=== PATIENT | male | born 1960 ===

== ENCOUNTER 2016-10-29 23:56 | Emergency (ER) | payer OTHER ==
[2016-10-29 23:59] VITALS: RESP 18; O2SAT 100
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
[2016-10-30 04:55] VITALS: BP 119/80; PULSE 60; TEMP 97.8
--- NOTE | 2016-10-30 13:42 | RAD ---
PROCEDURE: Radiographs of the pelvis. HISTORY: injury right side pain COMPARISON: None. FINDINGS: BONES: Pelvic Bones: Unremarkable. Hips: Grossly unremarkable. JOINTS: Sacroiliac Joints: Unremarkable. Pubic Symphysis: Unremarkable. OTHER FINDINGS: None. IMPRESSION: Unremarkable radiographs of the pelvis.
--- NOTE | 2016-10-30 13:42 | RAD ---
PROCEDURE: Radiographs of the Lumbar Spine. HISTORY: injury COMPARISON: No prior. FINDINGS: BONES: Normal alignment. No listhesis. No fracture. DISC SPACES: Degenerative change, vacuum disc phenomenon limited to the lumbosacral junction. OTHER FINDINGS: None. IMPRESSION: No acute findings related to/accounting for the clinical presentation.
--- NOTE | 2016-10-30 13:43 | RAD ---
PROCEDURE: Right Knee Radiographs. HISTORY: injury, medial pain COMPARISON: None. FINDINGS: BONES: Normal. No fracture. JOINTS: Normal. No osteoarthritis. JOINT EFFUSION: None. OTHER FINDINGS: None. IMPRESSION: No acute findings related to/accounting for the clinical presentation. No preliminary report provided by emergency department personnel.
--- NOTE | 2016-10-30 13:43 | RAD ---
PROCEDURE: Radiographs of the right tibia and fibula. HISTORY: injury, distal pain COMPARISON: None available. TECHNIQUE: Frontal and lateral views obtained. FINDINGS: BONES: No fracture or destructive lesion. JOINT SPACES: Unremarkable. OTHER FINDINGS: None. IMPRESSION: No acute findings related to/accounting for the clinical presentation. No preliminary report provided by emergency department personnel.
== END 2016-10-30 05:33 | disposition home or self-care (01) ==
LOC: H.ER 23:56
DX: S89.91XA Unspecified injury of right lower leg, initial encounter (principal); M54.5 Low back pain; S80.11XA Contusion of right lower leg, initial encounter; E11.9 Type 2 diabetes mellitus without complications; I10 Essential (primary) hypertension; V13.4XXA Pedal cycle driver injured in collision with car, pick-up truck or van in traffic accident, initial encounter; Y93.55 Activity, bike riding

== ENCOUNTER 2017-03-04 22:45 | Emergency (ER) | payer OTHER ==
[2017-03-04 22:50] VITALS: BP 141/82; PULSE 77; RESP 18; TEMP 98.3; O2SAT 96
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
== END 2017-03-05 01:11 | disposition home or self-care (01) ==
LOC: H.ER 22:45
DX: S39.012A Strain of muscle, fascia and tendon of lower back, initial encounter (principal); V43.52XA Car driver injured in collision with other type car in traffic accident, initial encounter; Y92.410 Unspecified street and highway as the place of occurrence of the external cause; E11.9 Type 2 diabetes mellitus without complications; F41.9 Anxiety disorder, unspecified; I10 Essential (primary) hypertension

== ENCOUNTER 2018-07-28 08:55 | Emergency (ER) | payer OTHER ==
[2018-07-28 08:59] VITALS: BMI 26.6
[2018-07-28 09:00] VITALS: BP 153/89; PULSE 72; RESP 18; TEMP 98.2; O2SAT 99
[2018-07-28] MEDS ORDERED: Lidocaine/Epi 1% 1:100000 20 ML IJ ONE (09:14)
[2018-07-28] MEDS ORDERED: Lidocaine 1% w Epi 1:100,000 Inj ONE (09:19)
--- NOTE | 2018-07-28 09:32 | ED PDOC ---
HPI: General Adult Time Seen by Provider: 07/28/18 09:09 Chief Complaint (Nursing): Abnormal Skin Integrity Chief Complaint (Provider): Abnormal Skin Integrity History Per: Patient History/Exam Limitations: no limitations Onset/Duration Of Symptoms: Hrs Current Symptoms Are (Timing): Still Present Additional Complaint(s): 58 year old male with a past medical history of colitis, diabetes, and hypertension who is presenting to the ED for evaluation of facial injury s/p fall onset earlier today. Patient states that he sustained a laceration above left eyebrow when his face struck the side mirror of a car door. He denies any loss of consciousness, dizziness, or blurry vision. Patient offers no other medical complaints at this time. PMD: none provided Past Medical History Reviewed: Historical Data, Nursing Documentation, Vital Signs Vital Signs: Last Vital Signs Temp 98.2 F 07/28/18 08:59 Pulse 72 07/28/18 08:59 Resp 18 07/28/18 08:59 BP 153/89 H 07/28/18 08:59 Pulse Ox 99 07/28/18 08:59 - Medical History PMH: Anxiety, Back Problems, Diabetes, Diverticulitis, HTN, Sleep Apnea Denies: Chronic Kidney Disease - Surgical History Other surgeries: Orthopedic surgery - Family History Family History: States: Diabetes, Hypertension - Social History Current smoker - smoking cessation education provided: No Alcohol: Social Drugs: Denies - Immunization History Hx Tetanus Toxoid Vaccination: Yes Hx Influenza Vaccination: No Hx Pneumococcal Vaccination: No - Allergies Allergies/Adverse Reactions: Allergies Allergy/AdvReac Type Severity Reaction Status Date / Time No Known Allergies Allergy Verified 11/25/14 19:19 Review of Systems ROS Statement: Except As Marked, All Systems Reviewed And Found Negative Constitutional: Positive for: Other (facial injury ) Eyes: Negative for: Vision Change Neurological: Negative for: Dizziness, Other (Loss of consciousness) Physical Exam - Reviewed Nursing Documentation Reviewed: Yes Vital Signs Reviewed: Yes - Physical Exam Appears: Positive for: Non-toxic, No Acute Distress Head Exam: Positive for: NORMOCEPHALIC (head: 2.5 cm superficial laceration above left eye brow, linear with no debris noted, no palpable fracture ) Skin: Positive for: Normal Color, Warm, Dry Eye Exam: Positive for: EOMI, Normal appearance, PERRL Neck: Positive for: Normal, Painless ROM, Supple Cardiovascular/Chest: Positive for: Regular Rate, Rhythm. Negative for: Murmur Respiratory: Positive for: Normal Breath Sounds. Negative for: Respiratory Distress Back: Positive for: Normal Inspection Extremity: Positive for: Normal ROM, Other (abrasion to dorsum of right hand ). Negative for: Deformity, Swelling Neurological/Psych: Positive for: Awake, Alert, Normal Tone, Oriented (x3). Negative for: Motor/Sensory Deficits - ECG O2 Sat by Pulse Oximetry: 99 (RA) Pulse Ox Interpretation: Normal Medical Decision Making Medical Decision Making: Time: 9:15 Plan: --CT Head to r/o intracranial bleed --Lidocaine/Epi 1% 3 ml IJ Verbal consent obtained for placement of sutures using local anesthesia, 1 percent lidocaine with epi. Timeout 9:20 am. Correct patient and site: 2 patient identifiers name and used. Patient tolerated procedure well. Scribe Attestation: Documented by Michelle Francis, acting as a scribe for Natanael Elizalde MD. Provider Scribe Attestation: All medical record entries made by the Scribe were at my direction and personally dictated by me. I have reviewed the chart and agree that the record accurately reflects my personal performance of the history, physical exam, medical decision making, and the department course for this patient. I have also personally directed, reviewed, and agree with the discharge instructions and disposition. Procedures - Laceration/Wound Repair Left Upper Face Wound Length (cm): 2.5 Wound's Depth, Shape: superficial, linear Wound Explored: clean Irrigated w/ Saline (ccs): 250 Betadine Prep?: No Anesthesia: Lidocaine w/ Epi Volume Anesthetic (ccs): 3 Wound Repaired With: Sutures Suture Size/Type: 5:0, proline Number of Sutures: 8 Wound Complexity: Simple Progress: Interrupted sutures with good approximation, patient tolerated procedure well. Disposition - Clinical Impression Clinical Impression: Head injury, Laceration - Patient ED Disposition Is Patient to be Admitted: No Counseled Patient/Family Regarding: Studies Performed, Diagnosis, Need For Followup, Rx Given - Disposition Referrals: [facility] [Outside] Disposition: Routine/Home Disposition Time: 10:16 Condition: FAIR Instructions: Laceration Repair With Stitches (DC), Closed Head Injury Forms: [employer] (H[place]ian)
--- NOTE | 2018-07-28 10:18 | CT ---
Date of service: 07/28/2018 PROCEDURE: CT HEAD WITHOUT CONTRAST. HISTORY: r/o bleed COMPARISON: 05/01/2016 TECHNIQUE: Axial computed tomography images were obtained through the head/brain without intravenous contrast. Radiation dose: Total exam DLP = 875.02 mGy-cm. This CT exam was performed using one or more of the following dose reduction techniques: Automated exposure control, adjustment of the mA and/or kV according to patient size, and/or use of iterative reconstruction technique. FINDINGS: HEMORRHAGE: No intracranial hemorrhage. BRAIN: No mass effect or edema. No atrophy or chronic microvascular ischemic changes. VENTRICLES: Unremarkable. No hydrocephalus. CALVARIUM: Unremarkable. PARANASAL SINUSES: Unremarkable as visualized. No significant inflammatory changes. MASTOID AIR CELLS: Unremarkable as visualized. No inflammatory changes. OTHER FINDINGS: Bordering the left orbit there is left Shadia orbital/facial soft tissue swelling assumed to be related to recent trauma. The globe is intact. IMPRESSION: No intracranial hemorrhage or mass effect. Left Shadia orbital/supra orbital facial soft tissue swelling compatible with recent history of trauma here.
== END 2018-07-28 10:16 | disposition home or self-care (01) ==
LOC: H.ER 08:55
DX: S01.81XA Laceration without foreign body of other part of head, initial encounter (principal); W19.XXXA Unspecified fall, initial encounter; Y92.89 Other specified places as the place of occurrence of the external cause; E11.9 Type 2 diabetes mellitus without complications; F41.9 Anxiety disorder, unspecified; I10 Essential (primary) hypertension

== ENCOUNTER 2018-08-02 15:54 | Emergency (ER) | payer OTHER ==
[2018-08-02 16:32] VITALS: BP 123/71; PULSE 58; RESP 16; TEMP 98.3; O2SAT 99
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
== END 2018-08-02 17:12 | disposition home or self-care (01) ==
LOC: H.ER 15:54
DX: Z48.02 Encounter for removal of sutures (principal)